=== PATIENT | female | born 1950 | race Caucasian/White ===

== ENCOUNTER → 2016-08-31 | Outpatient (CLI) | payer BC | LOC: MC.RAD 07:48 | DX: Z12.31 Encounter for screening mammogram for malignant neoplasm of breast (principal) ==

== ENCOUNTER → 2017-09-19 | Outpatient (CLI) | payer BC | LOC: MC.RAD 08:49 | DX: Z12.31 Encounter for screening mammogram for malignant neoplasm of breast (principal) ==

== ENCOUNTER → 2018-07-19 | Outpatient (CLI) | payer MEDICARE, OTHER | LOC: MC.RAD 07:27 | DX: N63.10 Unspecified lump in the right breast, unspecified quadrant (principal) | CPT/HCPCS: G0279 ==

== ENCOUNTER → 2018-09-28 | Outpatient (CLI) | payer MEDICARE, OTHER | LOC: MC.RAD 14:16 | DX: Z12.31 Encounter for screening mammogram for malignant neoplasm of breast (principal); Z78.0 Asymptomatic menopausal state ==

== ENCOUNTER → 2019-10-10 | Outpatient (CLI) | payer MEDICARE, OTHER | LOC: MC.RAD 08:36 | DX: Z12.31 Encounter for screening mammogram for malignant neoplasm of breast (principal) ==

== ENCOUNTER → 2020-12-22 | Outpatient (CLI) | payer MEDICARE, OTHER | LOC: MC.RAD 12-16 08:30 | DX: Z12.31 Encounter for screening mammogram for malignant neoplasm of breast (principal); Z98.0 Intestinal bypass and anastomosis status ==

== ENCOUNTER → 2021-12-23 | Outpatient (CLI) | payer MEDICARE, OTHER | LOC: MC.RAD 07:48 | DX: Z12.31 Encounter for screening mammogram for malignant neoplasm of breast (principal) ==

== ENCOUNTER → 2022-12-29 | Outpatient (CLI) | payer MEDICARE, OTHER | LOC: MC.RAD 06:58 | DX: Z12.31 Encounter for screening mammogram for malignant neoplasm of breast (principal) ==

== ENCOUNTER → 2023-09-12 | Outpatient (CLI) | payer MEDICARE, OTHER | LOC: MHCPAIN 11:10 | DX: M54.50 Low back pain, unspecified (principal); M51.36 Other intervertebral disc degeneration, lumbar region; M70.61 Trochanteric bursitis, right hip; M70.62 Trochanteric bursitis, left hip; G60.9 Hereditary and idiopathic neuropathy, unspecified | CPT/HCPCS: G0463 ==

== ENCOUNTER → 2023-11-15 | Outpatient (CLI) | payer MEDICARE ==
[~2023-11-15] VITALS: Ht 170.2 cm; Wt 102.0 kg
[~2023-11-15] MED LIST: ASPIRIN E.C. 8181 MG PO; CALCIUM 600 PLU1 TAB PO; CRESTOR5 MG PO; KRILL OIL 5001 EACH; LEVOXYL0.075 MG PO; LR 1,000 ML IV SCH; LYRICA 150MG C150 MG PO; MULTI VITAMINS1 TAB PO; Midazolam 2 MG/2 ML VIAL ONE; NS 0 ML IV ONE; OCUVITE1 TA1 PO; PAMELOR50 MG PO
[2023-11-15 12:02] VITALS: BP 152/85; PULSE 93; TEMP 98
--- NOTE | 2023-11-15 12:50 | NUR ---
Pt able to complete MRI without sedation.
== END ==
LOC: COL.RAD 11:15
DX: M54.50 Low back pain, unspecified (principal); M47.816 Spondylosis without myelopathy or radiculopathy, lumbar region; M47.817 Spondylosis without myelopathy or radiculopathy, lumbosacral region; M51.36 Other intervertebral disc degeneration, lumbar region; M48.061 Spinal stenosis, lumbar region without neurogenic claudication
CPT/HCPCS: J2250; J2704

== ENCOUNTER → 2023-12-05 | Outpatient (CLI) | payer MEDICARE ==
[~2023-12-05] MED LIST changes: -LR 1,000 ML IV SCH; -Midazolam 2 MG/2 ML VIAL ONE; -NS 0 ML IV ONE
== END ==
LOC: MHCPAIN 10:17
DX: M54.50 Low back pain, unspecified (principal); M21.371 Foot drop, right foot; M21.372 Foot drop, left foot; G60.9 Hereditary and idiopathic neuropathy, unspecified; M51.36 Other intervertebral disc degeneration, lumbar region
CPT/HCPCS: G0463

== ENCOUNTER → 2024-01-30 | Outpatient (CLI) | payer MEDICARE | LOC: MHCPAIN 14:44 | DX: M51.36 Other intervertebral disc degeneration, lumbar region (principal); M54.50 Low back pain, unspecified; M70.61 Trochanteric bursitis, right hip; M70.62 Trochanteric bursitis, left hip; G60.9 Hereditary and idiopathic neuropathy, unspecified | CPT/HCPCS: G0463 ==

== ENCOUNTER → 2024-05-07 | Outpatient (CLI) | payer MEDICARE, OTHER | LOC: COL.RAD 11:52 | DX: M47.816 Spondylosis without myelopathy or radiculopathy, lumbar region (principal); M41.86 Other forms of scoliosis, lumbar region ==